=== PATIENT | female | born 1950 | race Two or more races ===

== ENCOUNTER 2020-04-20 08:28 | Outpatient (CLI) | payer OTHER | END 2020-04-20 09:01 | disposition home or self-care (01) | LOC: TOM 08:28 | PROVIDERS: ATTEND Internal Medicine Hematology & Oncology | DX: G93.89 Other specified disorders of brain (principal); C34.31 Malignant neoplasm of lower lobe, right bronchus or lung | CPT/HCPCS: 70470; Q9965 ==

== ENCOUNTER 2020-05-04 08:51 | Emergency (ER) | payer OTHER ==
[~2020-05-04] VITALS: Ht 149.9 cm; Wt 54.4 kg
[2020-05-04] MEDS ORDERED: LOPRESSOR25 MG (09:29)
[2020-05-04] MEDS ORDERED: LEVOTHYROXINE50 MCG (09:29)
[2020-05-04] MEDS ORDERED: AMLODIPINE BESYL5 MG (09:30)
[2020-05-04] MEDS ORDERED: OXYBUTYNIN CHLOR5 M1 (09:30)
[2020-05-04] MEDS ORDERED: TAMSULOSIN HCL0.4 MG (09:30)
[2020-05-04] MEDS ORDERED: NAPROXEN500 MG PO (13:33)
[2020-05-04] MEDS ORDERED: PEPCID20 MG PO (13:33)
== END 2020-05-04 13:38 | disposition home or self-care (01) ==
LOC: ER 08:51
DX: M10.031 Idiopathic gout, right wrist (principal); M25.531 Pain in right wrist

== ENCOUNTER 2020-05-07 08:57 | Outpatient (CLI) | payer OTHER ==
[~2020-05-07 08:57] MED LIST: AMLODIPINE BESYL5 MG; LEVOTHYROXINE50 MCG; LOPRESSOR25 MG; NAPROXEN500 MG PO; OXYBUTYNIN CHLOR5 M1; PEPCID20 MG PO; TAMSULOSIN HCL0.4 MG
== END 2020-05-07 09:02 | disposition home or self-care (01) ==
LOC: NUCLEAR 08:57
PROVIDERS: ATTEND Internal Medicine Hematology & Oncology
DX: C34.31 Malignant neoplasm of lower lobe, right bronchus or lung (principal)
CPT/HCPCS: 78816; A9552

== ENCOUNTER 2021-08-30 08:13 | Outpatient (CLI) | payer OTHER | END 2021-08-30 08:20 | disposition home or self-care (01) | LOC: NUCLEAR 08:13 | PROVIDERS: ATTEND Internal Medicine Hematology & Oncology | DX: C34.31 Malignant neoplasm of lower lobe, right bronchus or lung (principal) ==